=== PATIENT | male | born 1950 | race African-American/Black ===

== ENCOUNTER 2024-01-03 10:19 | Emergency (ER) | payer OTHER ==
[2024-01-03] MEDS ORDERED: KETOROLAC TROMETHAMINE 15 MG/ML VIAL ONE (11:06)
[2024-01-03] MEDS: KETOROLAC TROMETHAMINE 15 MG/ML VIAL IM ONE (11:15)
[2024-01-03 11:36] VITALS: BP 155/70; PULSE 90; RESP 18; TEMP 97.5; BMI 32.8
== END 2024-01-03 11:27 | disposition home or self-care (01) ==
LOC: FER 10:19
PROC: 3E0233Z Introduction of Anti-inflammatory into Muscle, Percutaneous Approach (ICD-10-PCS; principal; 2024-01-03)
DX: R68.84 Jaw pain (principal); K08.89 Other specified disorders of teeth and supporting structures
CPT/HCPCS: 99284-25